=== PATIENT | female | born 1975 | race Caucasian/White ===

== ENCOUNTER 2016-07-07 12:23 | Emergency (ER) | payer BC ==
[2016-07-07 12:44] VITALS: BMI 30.7
[2016-07-07 12:51] VITALS: RESP 18; O2SAT 98
[2016-07-07 14:09] VITALS: BP 129/86; PULSE 82; TEMP 97.3
--- NOTE | 2016-07-07 14:35 | C.PDOC ---
History Of Present Illness 41 y/o female presents to the ED with complains of abscess to back of her head that she first noticed 2 days ago. Pt went to another hospital yesterday for the same, was given antibiotics. Pt states has been compliant with meds without relief. Pt denies fever, neck stiffness, dizziness, headache or head pain or any other complaints. Chief Complaint (Nursing): Dizziness/Lightheaded History Per: Patient History/Exam Limitations: no limitations Onset/Duration Of Symptoms: Days Current Symptoms Are (Timing): Still Present Severity: Mild Recent travel outside of the [place]: No Past Medical History Reviewed: Historical Data, Nursing Documentation, Vital Signs Vital Signs: Last Vital Signs Temp 97.3 F L 07/07/16 14:07 Pulse 82 07/07/16 14:07 Resp 18 07/07/16 14:07 BP 129/86 07/07/16 14:07 Pulse Ox 98 07/07/16 14:37 Family History: States: Unknown Family Hx - Social History Hx Alcohol Use: Yes Hx Substance Use: No - Immunization History Hx Tetanus Toxoid Vaccination: No Hx Influenza Vaccination: No Hx Pneumococcal Vaccination: No Review Of Systems Except As Marked, All Systems Reviewed And Found Negative. Constitutional: Negative for: Fever Musculoskeletal: Negative for: Neck Pain Skin: Positive for: Other (abscess to back of head) Neurological: Negative for: Headache, Dizziness Physical Exam - Physical Exam Appears: Non-toxic, No Acute Distress Skin: Warm, Dry, No Rash Head: Atraumatic, Normacephalic, Other (2.5 cm diameter indurated abscess to occipital area, no drainage noted; (+) erythema) Neck: Normal ROM, No Midline Cervical Tenderness, No Paracervical Tenderness, Supple Chest: Symmetrical Cardiovascular: Rhythm Regular Respiratory: Normal Breath Sounds, No Rales, No Rhonchi, No Wheezing Extremity: Bilateral: Atraumatic Neurological/Psych: Oriented x3 ED Course And Treatment O2 Sat by Pulse Oximetry: 98 (on room air) Pulse Ox Interpretation: Normal Medical Decision Making Medical Decision Making: Instructed patient to apply warm packs and continue abx. Pt to follow up with PMD in 2 days for wound check. Disposition - Disposition Referrals: [facility] [Outside] [facility] [Outside] Disposition: HOME/ ROUTINE Disposition Time: 13:25 Condition: GOOD Additional Instructions: Thank you for letting us take care of you today. Your provider was Dr. Moser. You were treated for a skin abscess. The emergency medical care you received today was directed at your acute symptoms. If you were prescribed any medication, please fill it and take as directed. It may take several days for your symptoms to resolve. Return to the Emergency Department if your symptoms worsen, do not improve, or if you have any other problems. Please contact your doctor or call one of the physicians/clinics you have been referred to that are listed on the Patient Visit Information form that is included in your discharge packet. Bring any paperwork you were given at discharge with you along with any medications you are taking to your follow up visit. Our treatment cannot replace ongoing medical care by a primary care provider (PCP) outside of the emergency department. Thank you for allowing the [facility] team to be part of your care today. Follow up in the clinic in 4-5 days for re-evaluation. Continue to put warm packs on the abscess as many times as possible to soften the abscess. Continue taking the antibiotics that were already given to you. Instructions: Abscess (ED) - Clinical Impression Clinical Impression: Abscess - Scribe Statement The provider has reviewed the documentation as recorded by the Sara Nolan Provider Attestation: All medical record entries made by the Sara were at my direction and personally dictated by me. I have reviewed the chart and agree that the record accurately reflects my personal performance of the history, physical exam, medical decision making, and the department course for this patient. I have also personally directed, reviewed, and agree with the discharge instructions and disposition.
== END 2016-07-07 14:09 | disposition home or self-care (01) ==
LOC: C.ER 12:23
DX: L02.811 Cutaneous abscess of head [any part, except face] (principal)